=== PATIENT | female | born 1965 | race American Indian/Alaskan Native ===

== ENCOUNTER 2019-03-21 22:55 | Emergency (ER) | payer SELFPAY ==
[2019-03-21] MEDS ORDERED: CATAPRES PO ONE (23:26)
[2019-03-21] MEDS ORDERED: CATAPRES ONE (23:30)
--- NOTE | 2019-03-21 23:40 | Emergency Department Report ---
ED General Adult HPI - General Chief complaint: High BP Stated complaint: HBP Time Seen by Provider: 03/21/19 23:39 Source: patient Mode of arrival: Ambulatory Limitations: No Limitations - History of Present Illness Initial comments: Shahnaz is a 53-year-old female up since emergency room for high blood pressure. Patient states she went for age physical today and was sent here for evaluation of her elevated blood pressure. Patient states her blood pressure was 210/110. Patient states she has a history of hypertension but she has been able to cont rol it with diet and exercise lately. Patient states she stopped taking blood pressure medication one year ago. Patient states she has seen her primary care for many months. Patient denies headache. Patient denies chest pain. Patient denies symptoms. Patient denies shortness of breath. Patient denies any physical complaints. Patient states she's been monitoring her blood pressure at home but noticed about 2 weeks ago her blood pressure started going up. -: Sudden Consistency: constant Improves with: rest Worsens with: movement Associated Symptoms: denies other symptoms. denies: confusion, chest pain, cough, diaphoresis, fever/chills, headaches, loss of appetite, malaise, nausea/vomiting, rash, seizure, shortness of breath, syncope, weakness Treatments Prior to Arrival: none - Related Data Previous Rx's Medication Instructions Recorded Last Taken Type HYDROcodone/APAP 5-325 [[place] 1 - 2 each PO Q4-6H PRN #30 tablet 12/28/13 Unknown Rx 5/325 mg] amLODIPine [Norvasc] 10 mg PO DAILY 15 Days #15 tab 03/22/19 Unknown Rx Allergies Allergy/AdvReac Type Severity Reaction Status Date / Time No Known Allergies Allergy Verified 12/28/13 12:19 ED Review of Systems ROS: Stated complaint: HBP Other details as noted in HPI Constitutional: denies: chills, fever Eyes: denies: eye pain, eye discharge, vision change ENT: denies: ear pain, throat pain Respiratory: denies: cough, shortness of breath, wheezing Cardiovascular: denies: chest pain, palpitations Endocrine: no symptoms reported Gastrointestinal: denies: abdominal pain, nausea, diarrhea Genitourinary: denies: urgency, dysuria, discharge Musculoskeletal: denies: back pain, joint swelling, arthralgia Skin: denies: rash, lesions Neurological: denies: headache, weakness, paresthesias Psychiatric: denies: anxiety, depression Hematological/Lymphatic: denies: easy bleeding, easy bruising ED Past Medical Hx - Past Medical History Previous Medical History?: Yes Hx Hypertension: Yes Additional medical history: Morbid obesity - Surgical History Past Surgical History?: No - Family History Family history: no significant - Social History Smoking Status: Never Smoker Substance Use Type: None - Medications Home Medications: Home Medications Medication Instructions Recorded Confirmed Last Taken Type HYDROcodone/APAP 5-325 [[place] 1 - 2 each PO Q4-6H PRN #30 tablet 12/28/13 Unknown Rx 5/325 mg] amLODIPine [Norvasc] 10 mg PO DAILY 15 Days #15 tab 03/22/19 Unknown Rx ED Physical Exam - General Limitations: No Limitations General appearance: alert, in no apparent distress - Head Head exam: Present: atraumatic, normocephalic - Eye Eye exam: Present: normal appearance, PERRL Pupils: Present: normal accommodation - ENT ENT exam: Present: mucous membranes moist - Neck Neck exam: Present: normal inspection - Respiratory Respiratory exam: Present: normal lung sounds bilaterally. Absent: respiratory distress - Cardiovascular Cardiovascular Exam: Present: regular rate, normal rhythm. Absent: systolic murmur, diastolic murmur, rubs, gallop - GI/Abdominal GI/Abdominal exam: Present: soft, normal bowel sounds - Extremities Exam Extremities exam: Present: normal inspection - Back Exam Back exam: Present: normal inspection - Neurological Exam Neurological exam: Present: alert, oriented X3 - Psychiatric Psychiatric exam: Present: normal affect, normal mood - Skin Skin exam: Present: warm, dry, intact, normal color. Absent: rash ED Course Vital Signs 03/21/19 03/21/19 03/21/19 23:17 23:32 23:53 Temperature 98.4 F Pulse Rate 69 69 Respiratory 20 Rate Blood Pressure 267/137 267/137 238/124 O2 Sat by Pulse 98 99 Oximetry 03/21/19 03/21/19 03/21/19 23:55 23:57 23:59 Temperature Pulse Rate 63 Respiratory Rate Blood Pressure 238/124 238/124 238/124 O2 Sat by Pulse 99 98 99 Oximetry 03/22/19 03/22/19 03/22/19 00:00 00:03 00:05 Temperature Pulse Rate Respiratory Rate Blood Pressure 256/153 256/153 256/153 O2 Sat by Pulse 97 98 97 Oximetry 03/22/19 03/22/19 03/22/19 00:07 00:09 00:11 Temperature Pulse Rate Respiratory Rate Blood Pressure 256/153 256/153 256/153 O2 Sat by Pulse 100 100 98 Oximetry 03/22/19 03/22/19 03/22/19 00:13 00:15 00:16 Temperature Pulse Rate Respiratory Rate Blood Pressure 256/153 219/113 219/113 O2 Sat by Pulse 97 97 96 Oximetry 03/22/19 03/22/19 03/22/19 00:19 00:21 00:23 Temperature Pulse Rate Respiratory Rate Blood Pressure 219/113 219/113 219/113 O2 Sat by Pulse 98 97 98 Oximetry 03/22/19 03/22/19 03/22/19 00:25 00:27 00:29 Temperature Pulse Rate Respiratory Rate Blood Pressure 219/113 219/113 219/113 O2 Sat by Pulse 97 96 97 Oximetry 03/22/19 03/22/19 03/22/19 00:31 00:33 00:35 Temperature Pulse Rate Respiratory Rate Blood Pressure 217/106 217/106 217/106 O2 Sat by Pulse 94 95 96 Oximetry 03/22/19 03/22/19 03/22/19 00:37 00:39 00:41 Temperature Pulse Rate Respiratory Rate Blood Pressure 256/153 256/153 256/153 O2 Sat by Pulse 96 96 95 Oximetry 03/22/19 03/22/19 03/22/19 00:43 00:45 00:46 Temperature Pulse Rate Respiratory Rate Blood Pressure 256/153 226/98 226/98 O2 Sat by Pulse 98 92 92 Oximetry 03/22/19 03/22/19 03/22/19 00:49 00:55 00:56 Temperature Pulse Rate 65 Respiratory Rate Blood Pressure 226/98 226/98 228/98 O2 Sat by Pulse 97 100 Oximetry 03/22/19 03/22/19 03/22/19 01:01 01:03 01:07 Temperature Pulse Rate Respiratory Rate Blood Pressure 230/95 230/95 217/106 O2 Sat by Pulse 92 99 98 Oximetry 03/22/19 03/22/19 03/22/19 01:16 01:30 01:37 Temperature Pulse Rate Respiratory Rate Blood Pressure 215/116 217/108 215/116 O2 Sat by Pulse 91 98 98 Oximetry 03/22/19 03/22/19 03/22/19 01:45 01:57 02:01 Temperature Pulse Rate Respiratory Rate Blood Pressure 223/103 223/103 189/95 O2 Sat by Pulse 90 96 93 Oximetry - Reevaluation(s) Reevaluation #1: I discussed all results with patient. I discussed plan of care outpatient. Patient agrees plan of care. Patient was discharged home. Patient states discharge. Patient given discharge instruction. Patient voiced understanding of discharge instructions. 03/22/19 02:17 ED Medical Decision Making - Lab Data Result diagrams: 03/22/19 00:00 03/22/19 00:00 - EKG Data -: EKG Interpreted by Me EKG shows normal: sinus rhythm, axis, intervals, QRS complexes, ST-T waves Rate: normal - EKG Data Interpretation: LV[facility] - Medical Decision Making She is a 53-year-old female that presents emergency room for management of her blood pressure. Patient's blood pressure is extremely elevated. Patient given clonidine and her blood pressure decreased. Patient given Norvasc 10 mg and her blood pressure decreased to a more except arrange for patient be discharged. Patient had labs done and labs essentially unremarkable. Patient given discharge instructions. Patient stable for discharge. Patient discharged home. - Differential Diagnosis hypertensive urgency. Uncontrolled blood pressure. noncompliance. Critical care attestation.: If time is entered above; I have spent that time in minutes in the direct care of this critically ill patient, excluding procedure time. ED Disposition Clinical Impression: Hypertensive urgency, Essential hypertension Disposition: DC-01 TO HOME OR SELFCARE Is pt being admited?: No Does the pt Need Aspirin: No Condition: Stable Instructions: Hypertension (ED), Hypertensive Crisis (ED) Additional Instructions: Patient to follow up with primary care in 2-3 days. Patient to return to ER if condition worsens. Patient to stay off work until medically clear by her primary care. Patient to increase water. Patient is a low-salt diet. Patient to monitor blood pressure and take blood pressure log to her primary care visits. Patient to take medications as instructed. Prescriptions: amLODIPine [Norvasc] 10 mg PO DAILY 15 Days #15 tab Referrals: LAURA FLANNERY MD [Primary Care Provider] - 2-3 Days Time of Disposition: 02:16
[2019-03-22 00:51] LABS: Hemoglobin 11.8 gm/dl (10.1-14.3); Mean Corpuscular HGB Conc 32 % (30-34); Mean Corpuscular Volume 83 fl (79-97); Platelet Count 195 K/mm3 (140-440); Red Blood Count 4.45 M/mm3 (3.65-5.03)
[2019-03-22] MEDS ORDERED: NORVASC PO ONE (00:52)
[2019-03-22 01:15] LABS: Albumin 3.7 g/dL (3.9-5); BUN/Creatinine Ratio 13; Blood Urea Nitrogen 13 mg/dL (7-17); Calcium 8.8 mg/dL (8.4-10.2); Hemolysis Index 161
[2019-03-22 01:37] LABS: Alanine Aminotransferase 38 units/L (7-56)
[2019-03-22 02:04] VITALS: BP 189/95
== END 2019-03-22 02:40 | disposition home or self-care (01) ==
LOC: ED 22:55
DX: I16.0 Hypertensive urgency (principal); I10 Essential (primary) hypertension; E66.01 Morbid (severe) obesity due to excess calories; Z79.899 Other long term (current) drug therapy
CPT/HCPCS: 36415; 80053; 85027; 93005; 93010; 99283

== ENCOUNTER 2020-03-23 22:00 | Emergency (ER) | payer SELFPAY ==
[2020-03-23] MEDS ORDERED: ASPIRIN 325 MG TAB PO ONE (23:35)
[2020-03-24 00:38] LABS: Basophils # (Auto) 0.1 K/mm3 (0.0-0.1); Basophils % (Auto) 0.9 % (0.0-1.8); Eosinophils # (Auto) 0.2 K/mm3 (0.0-0.4); Eosinophils % (Auto) 3.4 % (0.0-4.3); Hemoglobin 12.3 gm/dl (10.1-14.3); Lymphocytes # (Auto) 2.1 K/mm3 (1.2-5.4); Lymphocytes % (Auto) 35.9 % (13.4-35.0); Mean Corpuscular HGB Conc 32 % (30-34); Mean Corpuscular Volume 83 fl (79-97); Monocytes # (Auto) 0.5 K/mm3 (0.0-0.8); Monocytes % (Auto) 7.7 % (0.0-7.3); Platelet Count 278 K/mm3 (140-440); Red Blood Count 4.56 M/mm3 (3.65-5.03)
[2020-03-24 00:47] LABS: BUN/Creatinine Ratio 19; Blood Urea Nitrogen 17 mg/dL (7-17); Calcium 9.8 mg/dL (8.4-10.2); Hemolysis Index 6
[2020-03-24 01:41] LABS: INR 1.02 (0.87-1.13)
--- NOTE | 2020-03-24 01:45 | XRay Report ---
CHEST 1 VIEW, 03/24/2020 12:04 AM CLINICAL INFORMATION/INDICATION: Chest pain COMPARISON: None FINDINGS: SUPPORT DEVICES: None. HEART: There is mild enlargement of the cardiac silhouette. LUNGS/PLEURA: There is diffuse bilateral interstitial prominence without evidence of focal airspace d isease or significant pleural effusion. ADDITIONAL FINDINGS: No additional acute findings. IMPRESSION: 1. Mild enlargement of the cardiac silhouette. 2. Prominent interstitial markings suggest vascular congestion without evidence of overt pulmonary ed reggie. Signer Name: Carmen Chase MD Signed: 03/24/2020 1:41 AM Workstation Name: [id number]
[2020-03-24] MEDS ORDERED: ACETAMINOPHEN 325 MG TAB ONE (04:34)
[2020-03-24] MEDS ORDERED: ACETAMINOPHEN 325 MG TAB PO ONE (04:40)
[2020-03-24 04:42] VITALS: BP 210/103
[2020-03-24] MEDS ORDERED: POTASSIUM CHLORIDE ER 20 MEQ TAB PO ONE (05:10)
--- NOTE | 2020-03-24 05:15 | Emergency Department Report ---
ED Chest Pain HPI - General Chief Complaint: Chest Pain Stated Complaint: SKIN PROBLEM/IRREGULAR HEART BEAT Time Seen by Provider: 03/24/20 04:50 Source: patient Mode of arrival: Ambulatory Limitations: No Limitations - History of Present Illness Initial Comments: 54-year-old female the past medical history of morbid obesity and hypertension presents to the hospital originally with complaint of skin rash times over 1 month then she developed chest pain while in the waiting room. Skin rash complaint: Patient has a history of eczema and has chronic upper extremity rash. Patient is concerned because she now also has a lower extremity rash and worsening rash to her hands. Rash is pruritic, with dark patches of discoloration. Patient trying several [id number] treatments without improvement. Patient thinks that rash was caused by using [place] in December. She denies any fever. While getting her blood pressure check patient developed chest pain in the middle of her chest. She states the blood pressure cuff is too tight. Once her blood pressure cuff improved her chest pain resolved. Patient complains of bilateral shoulder pain but thinks she slept wrong. Patient also complains of intermittent irregular heartbeat feeling for the last 2 to 3 days not exacerbated by activity. Patient states she has "very little shortness of anupam th". Patient presents to the ED with elevated blood pressure but currently denies chest pain, headache, or blurred vision. She states she just took her Norvasc 10 mg, hydrochlorothiazide 25 mg, lisinopril 20 mg just prior to my evaluation and typically takes the medication at 5 AM every morning Severity scale (0 -10): 7 - Related Data Previous Rx's Medication Instructions Recorded Last Taken Type HYDROcodone/APAP 5-325 [[place] 1 - 2 each PO Q4-6H PRN #30 tablet 12/28/13 Unknown Rx 5/325 mg] amLODIPine [Norvasc] 10 mg PO DAILY 15 Days #15 tab 03/22/19 Unknown Rx Mineral Oil/Hydrophil Petrolat 1 applicatio TP TID #1 oint...g. 03/24/20 Unknown Rx [Aquaphor Healing Ointment] Prednisone [predniSONE 10 mg 10 mg PO .TAPER #1 tab.ds.pk 03/24/20 Unknown Rx (6-Day Pack, 21 Tabs)] diphenhydrAMINE [Benadryl CAP] 25 mg PO Q6HR PRN #20 capsule 03/24/20 Unknown Rx Allergies Allergy/AdvReac Type Severity Reaction Status Date / Time No Known Allergies Allergy Verified 12/28/13 12:19 Heart Score - HEART Score History: Slightly suspicious EKG: Non-specific Age: 45-65 Risk factors: > 3 risk factors or hx of atherosclerotic disease Troponin: < normal limit HEART Score: 4 ED Review of Systems ROS: Stated complaint: SKIN PROBLEM/IRREGULAR HEART BEAT Other details as noted in HPI Comment: All other systems reviewed and negative ED Past Medical Hx - Past Medical History Previous Medical History?: Yes Hx Hypertension: Yes Additional medical history: Morbid obesity, eczema - Family History Family history: CAD/ID - Social History Smoking Status: Never Smoker - Medications Home Medications: Home Medications Medication Instructions Recorded Confirmed Last Taken Type HYDROcodone/APAP 5-325 [[place] 1 - 2 each PO Q4-6H PRN #30 tablet 12/28/13 Unknown Rx 5/325 mg] amLODIPine [Norvasc] 10 mg PO DAILY 15 Days #15 tab 03/22/19 Unknown Rx Mineral Oil/Hydrophil Petrolat 1 applicatio TP TID #1 oint...g. 03/24/20 Unknown Rx [Aquaphor Healing Ointment] Prednisone [predniSONE 10 mg 10 mg PO .TAPER #1 tab.ds.pk 03/24/20 Unknown Rx (6-Day Pack, 21 Tabs)] diphenhydrAMINE [Benadryl CAP] 25 mg PO Q6HR PRN #20 capsule 03/24/20 Unknown Rx ED Physical Exam - General Limitations: No Limitations - Other Other exam information: General: No acute distress Head: Atraumatic Eyes: normal appearance ENT: Moist mucous membranes Neck: Normal appearance, no midline tenderness Chest: Clear to auscultation bilaterally CV: Regular rate and rhythm Abdomen: Soft, normal bowel sounds, nontender, nondistended, no rebound or guarding Back: Normal inspection Extremity: Normal inspection, full range of motion, no calf tenderness or leg edema Neuro: Alert O x 3, no facial asymmetry, speech clear, no gross motor sensory deficit Psych: Appropriate behavior Skin: Patient has an eczematous rash to upper extremities. Patient has hyperpigmented plaques to the dorsum of bilateral hands as well as lower extremities. Skin appears very dry. Patient does not have any warmth, erythema ED Course Vital Signs 03/23/20 03/24/20 23:18 04:41 Temperature 98.0 F Pulse Rate 81 59 L Respiratory 14 18 Rate Blood Pressure 225/118 Blood Pressure 210/103 [Right] O2 Sat by Pulse 98 Oximetry OLIVIA score - Olivia Score Age > 65: (0) No Aspirin use within the Past 7 Days: (0) No 3 or more CAD Risk Factors: (1) Yes 2 or more Angina events in past 24 hrs: (0) No Known CAD with more than 50% Stenosis: (0) No Elevated Cardiac Markers: (0) No ST Deviation Greater than 0.5mm: (0) No OLIVIA Score: 1 ED Medical Decision Making - Lab Data Result diagrams: 03/23/20 23:39 03/23/20 23:39 Lab Results 03/23/20 03/23/20 03/24/20 Range/Units 23:39 23:39 00:56 WBC 5.9 (4.5-11.0) K/mm3 RBC 4.56 (3.65-5.03) M/mm3 Hgb 12.3 (10.1-14.3) gm/dl Hct 38.0 (30.3-42.9) % MCV 83 (79-97) fl MCH 27 L (28-32) pg MCHC 32 (30-34) % RDW 15.0 (13.2-15.2) % Plt Count 278 (140-440) K/mm3 Lymph % (Auto) 35.9 H (13.4-35.0) % Wake % (Auto) 7.7 H (0.0-7.3) % Eos % (Auto) 3.4 (0.0-4.3) % Baso % (Auto) 0.9 (0.0-1.8) % Lymph # 2.1 (1.2-5.4) K/mm3 Wake # 0.5 (0.0-0.8) K/mm3 Eos # 0.2 (0.0-0.4) K/mm3 Baso # 0.1 (0.0-0.1) K/mm3 Seg Neutrophils % 52.1 (40.0-70.0) % Seg Neutrophils # 3.1 (1.8-7.7) K/mm3 PT 13.6 (12.2-14.9) Sec. INR 1.02 (0.87-1.13) Sodium 138 (137-145) mmol/L Potassium 3.3 L (3.6-5.0) mmol/L Chloride 98.3 (98-107) mmol/L Carbon Dioxide 25 (22-30) mmol/L Anion Gap 18 mmol/L BUN 17 (7-17) mg/dL Creatinine 0.9 (0.6-1.2) mg/dL Estimated GFR > 60 ml/min BUN/Creatinine Ratio 19 % Glucose 120 H (65-100) mg/dL Calcium 9.8 (8.4-10.2) mg/dL Troponin T < 0.010 (0.00-0.029) ng/mL 03/24/20 Range/Units 02:48 WBC (4.5-11.0) K/mm3 RBC (3.65-5.03) M/mm3 Hgb (10.1-14.3) gm/dl Hct (30.3-42.9) % MCV (79-97) fl MCH (28-32) pg MCHC (30-34) % RDW (13.2-15.2) % Plt Count (140-440) K/mm3 Lymph % (Auto) (13.4-35.0) % Wake % (Auto) (0.0-7.3) % Eos % (Auto) (0.0-4.3) % Baso % (Auto) (0.0-1.8) % Lymph # (1.2-5.4) K/mm3 Wake # (0.0-0.8) K/mm3 Eos # (0.0-0.4) K/mm3 Baso # (0.0-0.1) K/mm3 Seg Neutrophils % (40.0-70.0) % Seg Neutrophils # (1.8-7.7) K/mm3 PT (12.2-14.9) Sec. INR (0.87-1.13) Sodium (137-145) mmol/L Potassium (3.6-5.0) mmol/L Chloride (98-107) mmol/L Carbon Dioxide (22-30) mmol/L Anion Gap mmol/L BUN (7-17) mg/dL Creatinine (0.6-1.2) mg/dL Estimated GFR ml/min BUN/Creatinine Ratio % Glucose (65-100) mg/dL Calcium (8.4-10.2) mg/dL Troponin T < 0.010 (0.00-0.029) ng/mL - EKG Data -: EKG Interpreted by Me EKG shows normal: sinus rhythm, ST-T waves (No STEMI LVH) Rate: normal - Radiology Data Radiology results: report reviewed CHEST 1 VIEW, 03/24/2020 12:04 AM CLINICAL INFORMATION/INDICATION: Chest pain COMPARISON: None FINDINGS: SUPPORT DEVICES: None. HEART: There is mild enlarg ement of the cardiac silhouette. LUNGS/PLEURA: There is diffuse bilateral interstitial prominence without evidence of focal airspace disease or significant pleural effusion. ADDITIONAL FINDINGS: No additional acute findings. IMPRESSION: 1. Mild enlargement of the cardiac silhouette. 2. Prominent int erstitial markings suggest vascular congestion without evidence of overt pulmonary edema. - Medical Decision Making Patient has multiple complaints and took quite some time to obtain history of present illness and descriptions of symptoms. Patient presented for skin rash. Rash has been going on for several weeks despite outpatient treatment. I do not believe this is a life-threatening rash. Patient skin appears very dry with hyperpigmented plaques and pruritus. Will be treated with Aquaphor, Benadryl and a short course of systemic steroids. Patient secondary complaint of chest pain which she is unable to qualify that only happened while getting her blood pressure checked. Patient having intermittent irregular feeling of a heartbeat. Given poorly controlled BP, risk factors, and heart score 4 therefore I recommended admission which patient dec lines at this time. Patient will sign out AGAINST MEDICAL ADVICE. Patient's BP elevated but currently asymptomatic without signs of acute renal failure. Patient does have troponin negative x2. Mild hypokalemia noted which was supplemented with p.o. potassium prior to discharge. Patient took her prescribed medications prior to my evaluation therefore I suspect BP will improve. Follow-up with diver tender, PMD, and creel hand advised Chest pain referral form faxed to [facility] even though patient has a heart score of 4 and is signing out AGAINST MEDICAL ADVICE Critical Care Time: No Critical care attestation.: If time is entered above; I have spent that time in minutes in the direct care of this critically ill patient, excluding procedure time. ED Disposition Clinical Impression: Skin rash, Eczema, Hypokalemia, Chest pain, Uncontrolled hypertension Disposition: DC-07 LEFT AGAINST MED ADVICE Is pt being admited?: No Does the pt Need Aspirin: No Condition: Stable Instructions: Eczema (ED), Hypokalemia (ED), Chest Pain (ED), Chronic Hyp ertension (ED), Hypertension (ED) Additional Instructions: Take the medication as prescribed. Follow-up with your doctor or doctor/clinic provided. Return if symptoms worsen as indicated by your discharge instructions. Admission was recommended due to complaint of chest pain, heart risk factors, and uncontrolled blood pressure. You are signing out AGAINST MEDICAL ADVICE. Your chest pain referral form has been faxed to [facility] but please call to follow-up and schedule outpatient visit. Please return to the ER if your chest pain and heart symptoms worsen. Prescriptions: Mineral Oil/Hydrophil Petrolat [Aquaphor Healing Ointment] 1 applicatio TP TID #1 oint...g. diphenhydrAMINE [Benadryl CAP] 25 mg PO Q6HR PRN #20 capsule PRN Reason: Itching Prednisone [predniSONE 10 mg (6-Day Pack, 21 Tabs)] 10 mg PO .TAPER #1 tab.ds.pk Referrals: PRIMARY CARE, [Primary Care Provider] - 3-5 Days [facility] [Provider Group] - 2-3 Days (creel hand) MICHELLE CHAVIRA MD [Staff Physician] - 3-5 Days (diver tender ) Forms: AMA Form Time of Disposition: 05:25
== END 2020-03-24 05:50 | disposition left against medical advice (07) ==
LOC: ED 22:00
DX: I10 Essential (primary) hypertension (principal); E87.6 Hypokalemia; R07.9 Chest pain, unspecified; L30.9 Dermatitis, unspecified; R21 Rash and other nonspecific skin eruption; E66.9 Obesity, unspecified; Z79.899 Other long term (current) drug therapy; Z68.42 Body mass index [BMI] 45.0-49.9, adult
CPT/HCPCS: 36415; 71045; 80048; 84484; 85025; 85610; 93005

== ENCOUNTER 2021-07-29 11:51 | Outpatient (CLI) | payer OTHER ==
--- NOTE | 2021-07-29 13:50 | XRay Report ---
LEFT SHOULDER 3 VIEWS INDICATION: Left shoulder pain. COMPARISON: None. IMPRESSION: No acute osseous or soft tissue abnormality. Mild osteoarthritic changes are identifi ed at the glenohumeral joint. LUMBOSACRAL SPINE 3 VIEWS INDICATION: BACK PAIN. COMPARISON: None. IMPRESSION: There is 3 mm anterolisthesis of L4 with respect to L5. The remaining lumbar vertebra ar e normal in alignment. Mild discogenic DJD and facet arthropathy are identified at L4-5 and L5-S1. No acute osseous or soft tissue abnormality. LEFT KNEE 3 VIEWS INDICATION: Left knee pain. COMPARISON: None. IMPRESSION: No acute osseous or soft tissue abnormality. Mild medial compartment joint space narr owing and marginal spurring is identified. Minimal tibial spine spurring and retropatellar spurring a re also identified. No joint effusion is appreciated. Signer Name: Jack Saba Jr, MD Signed: 07/29/2021 1:45 PM Workstation Name: [id number]
== END 2021-07-29 11:52 | disposition home or self-care (01) ==
LOC: XRAY 11:51
PROVIDERS: ATTEND Internal Medicine
DX: M19.012 Primary osteoarthritis, left shoulder (principal); M47.817 Spondylosis without myelopathy or radiculopathy, lumbosacral region; M76.892 Other specified enthesopathies of left lower limb, excluding foot; M25.512 Pain in left shoulder; M54.9 Dorsalgia, unspecified; M25.562 Pain in left knee
CPT/HCPCS: 72100